=== PATIENT | female | born 1955 | race Caucasian/White ===

== ENCOUNTER 2017-01-02 10:11 | Day surgery (SDC) | payer OTHER ==
[2017-01-02] VITALS (14 sets, daily range): BP systolic 118–179; BP diastolic 63–85; PULSE 66–105; RESP 6–18; Ht 160 cm; Wt 66.3 kg
[~2017-01-02] VITALS: Ht 160 cm; Wt 66.3 kg
[2017-01-02] MEDS ORDERED: MIDAZOLAM 1 MG/ML 2 ML INJ ONE (10:16)
[2017-01-02] MEDS ORDERED: CEFAZOLIN 1 GM INJ ONE (10:16)
[2017-01-02] MEDS ORDERED: PROPOFOL 20 ML ONE (10:16)
[2017-01-02] MEDS ORDERED: FENTAnyl 50 MCG/ML VIAL ONE (10:16)
[2017-01-02] MEDS ORDERED: LIDOCAINE 2% (SDV) 5 ML INJ ONE (10:16)
[2017-01-02] MEDS ORDERED: BUPIVACAINE 0.25% (MPF) 30 ML INJ ONE ×2 (11:10→12:11)
[2017-01-02] MEDS ORDERED: ATOR20TA38 PO (11:19)
[2017-01-02] MEDS ORDERED: METF-382 PO (11:19)
[2017-01-02] MEDS ORDERED: LEVO50TA74 PO (11:19)
--- NOTE | 2017-01-02 11:25 | HPN ---
Date/Time of Note Date/Time of Note DATE: 01/02/17 TIME: 11:25 Interval H&P Admission Note Pt. seen H&P reviewed: No system changes ADELINA SIMON MD Jan 02, 2017 11:25
--- NOTE | 2017-01-02 11:27 | OPPN ---
Date/Time of Note Date/Time of Note DATE: 01/02/17 TIME: 11:25 Operative/Procedure Note Pre-Operative Diagnosis cmc of l thuimb arthritis Post-Operative Diagnosis same Procedure pyroshpoere interposition arthroplasty Surgeon: ADELINA SIMON MD Implants/Grafts pyroshoere Estimated blood loss: minimal Drains: Not applicable Specimens: Not Applicable Complications: None Anesthesia type: ADELINA LUU MD Jan 02, 2017 11:26
[2017-01-02] MEDS ORDERED: DEXAMETHASONE 4 MG/ML 1 ML INJ ONE (11:39)
[2017-01-02] MEDS ORDERED: METOCLOPRAMIDE 10 MG INJ ONE (11:39)
[2017-01-02] MEDS ORDERED: ONDANSETRON 4 MG INJ ONE (11:39)
[2017-01-02] MEDS ORDERED: OXYCODONE/ACETAMINOPHEN (5/325) TAB PO PRN ×2 (12:00)
[2017-01-02] MEDS ORDERED: MEPERIDINE 25 MG INJ IV PRN (12:00)
[2017-01-02] MEDS ORDERED: DIPHENHYDRAMINE 50 MG INJ IV PRN (12:00)
[2017-01-02] MEDS ORDERED: HYDROmorphONE (0.2 MG/ML) 10ML SYG IV PRN ×2 (12:00)
[2017-01-02] MEDS ORDERED: ONDANSETRON 4 MG INJ IV PRN (12:00)
[2017-01-02] MEDS ORDERED: FENTAnyl 50 MCG/ML VIAL IV PRN (12:00)
[2017-01-02] MEDS ORDERED: PROCHLORPERAZINE 10 MG INJ IV PRN (12:00)
[2017-01-02] MEDS ORDERED: HYDROmorphONE 2 MG/ML SYG ONE (12:27)
[2017-01-02] MEDS ORDERED: LIDOCAINE 1%/EPI 30 ML INJ ONE (13:04)
[2017-01-02] MEDS ORDERED: INSULIN ASPART [NOVOLOG] 3 ML PEN SC ONE (14:00)
--- NOTE | 2017-01-02 15:04 | RADRPT ---
PROCEDURE: Intraoperative imaging of the left thumb with fluoroscopy. CLINICAL INDICATION: Left thumb pain. Intraoperative. TECHNIQUE: Two images of the left thumb were obtained in the operating room with an image intensif ier. No radiologist was in attendance. 3 seconds of fluoroscopy time was used. COMPARISON: No prior study is available for comparison. FINDINGS: Images demonstrate a prosthetic first carpal metacarpal joint. IMPRESSION: 1. Intraoperative imaging of the left thumb. RPTAT: QQ .Isaac Gimenez MD, MD Date Time Electronically viewed and signed by .Isaac Gimenez MD, MD on 01/02/2017 15:04 .R/
--- NOTE | 2017-01-02 16:24 | OPR ---
DATE OF OPERATION: 01/02/2017 PREOPERATIVE DIAGNOSIS: Advanced osteoarthritis, metacarpal carpal joint basilar joint, left thumb. POSTOPERATIVE DIAGNOSIS: Advanced osteoarthritis, metacarpal carpal joint basilar joint, left thumb . PROCEDURE: 1. Resection arthroplasty, CMC joint, left thumb. 2. Pyrosphere interposition arthroplasty. SURGEON: Adelina Teran MD TERRITORY ACCOUNT REPRESENTATIVE: Staff. FOOD AND BEVERAGE CHECKER: Sushma. ANESTHESIA TECHNIQUE: General anesthetic by the anesthesiologist. Local anesthetic by the surgeon. SURGICAL PAUSE: I re-examined the patient in the preop holding area. I confirmed the operative pro cedure and plan with the patient awake. I dmitry in the surgical incision with a marking pen. I show ed the drawn surgical incision to the patient awake. I once again confirmed the operative procedure and plan as we discussed. INFORMED CONSENT: At the time we scheduled the operative procedure in the office, we talked to the patient about the risks and hazards of surgery, discussing operative mortality, wound infection, ner ve injury, good result, bad result, potential complications, dislocations, casting time, everything we could think about to give the patient adequate information and based for informed consent. At the end of that conversation we had the patient sign a standard note to document the conversation . DESCRIPTION OF PROCEDURE: The patient was taken to surgery, anesthetized as above, sterile prep and drape performed. Pneumatic tourniquet inflated to 250 mmHg. A longitudinal incision made on dorsal radial aspect of the thumb CMC joint. The joint was exposed. The extensor pollicis brevis tendon freed up and retracted. The joint incised and the capsule kiesha rided. We mobilized the joint. Placed all the vital structures, including superficial radian nerve fibers, behind retractor. Resected with the oscillating saw the base of the thumb metacarpal, just subchondral bone, and did the same for the trapezium. Made sure we got all the hidden pieces of bon e behind the thumb metacarpal and behind the trapezium excised so as not to leave any hidden bone. Spent a lot of time getting that bone out and making sure we got it all, looking carefully several t imes. Irrigated the wound. Using each incision, we marked the center of the tube with respect to t he cut articular surfaces. With a bur, we shaped out a cup. With the provided rasp, we finished the cups up to a size 20. The patient's bone is pretty soft. I had to be very careful and very delica te to get cups without shattering the respective bones. Fitting in trials, I tried above a size 20 and a size 10, and chose the size 20. Washed out the wound. Dropped in lidocaine and Marcaine, and let it soak for 5 minutes. Then, we removed it, coated the cups with a little bit of bone wax, and then removed it, dropped in the selected . We closed the joint with closing the capsule [id number], reefed to bring it into slight extensi on. Closed the skin with interrupted Vicryl Rapide suture. Took intraoperative x-rays before putti ng on the dressing, showing that the ball to be in the appropriate position between the t humb metacarpal from the trapezium. Put a bulky dressing and splint On. DISCHARGE MEDICATIONS: 1. Hydrocodone with acetaminophen. 2. Keflex. FOLLOWUP: Will be in our office in a week. I plan to keep the patient immobilized and protected in a cast for about 6 weeks to allow the implant to become encapsulated and stable. We have had none of these dislocate after the first week. We had a couple dislocate the first week, put them back, a nd they did well. None have to come out later. How stable are these late. Impossible to know because everybody is different. Each implant is a lit tle different, each resection arthroplasty is a little bit, each person's tissue is a little bit. I am sure they can be dislocated late, but it was impossible to know how much it is going to ta ke. Patient has been so advised. The operative procedure was around an hour. Patient is awake and comfortable in recovery. Dictated By: ADELINA LUGO/FARTUN Conf#: [id number] DID#: [id number]
== END 2017-01-02 16:10 | disposition home or self-care (01) ==
LOC: SDS 10:11
PROVIDERS: ATTEND Orthopaedic Surgery Hand Surgery
DX: M19.042 Primary osteoarthritis, left hand (principal); E11.9 Type 2 diabetes mellitus without complications; I10 Essential (primary) hypertension; E03.9 Hypothyroidism, unspecified; E78.5 Hyperlipidemia, unspecified
CPT/HCPCS: 25447; 73130; 82962; J0690; J1100; J1170; J1815; J2250; J2405; J2765; J3010